=== PATIENT | female | born 1930 | race Caucasian/White ===

== ENCOUNTER 2017-01-29 07:36 | Emergency (ER) | payer MEDICARE, OTHER ==
[~2017-01-29] VITALS: Ht 154.9 cm; Wt 72.6 kg
[~2017-01-29 07:36] MED LIST: AMLO10TA2 PO; AMLO2.5T PO; ASCO500C PO; ASPI81TA44 PO; ATOR10TA60 PO; CEPH-263 PO; CIPR250T30 PO; CITA10TA4 PO; CITA10TA8 PO; CITA20TA5 PO; FURO-68 PO; FURO-69 PO; INSU100I17 SQ; INSU100I18 SQ; LEVO75TA5 PO; LOSA1TAB17 PO; METO2.5T PO; MV,C1TAB19 PO; OMEG300C PO; TOPI25TA7 PO; WARF4TAB68 PO
--- NOTE | 2017-01-29 07:47 | EKG ---
[facility] [address] [place] [address] Test Date: 2017-01-29 Test Time: 07:37:29 Pat Name: MOODY BULLARD Department: Room: Gender: F General Surgeon: : [id number] Requested By: CHARLES MENDES Order Number: [id number] Reading MD: Measurements Intervals [place] Rate: 70 P: 0 LA: 342 QRS: -101 QRSD: 142 T: 84 QT: 496 QTc: 539 Interpretive Statements SINUS RHYTHM PROLONGED LA INTERVAL ABNORMAL RIGHT SUPERIOR AXIS DEVIATION RIGHT BUNDLE BRANCH BLOCK QRS(T) CONTOUR ABNORMALITY CONSIDER INFERIOR INFARCT RI6.01 Unconfirmed report No previous ECG available for comparison
--- NOTE | 2017-01-29 07:58 | PHYS DOC ---
Past Medical History Past Medical History: A-Fib, CHF, Diabetes-Type II, High Cholesterol, Hypertension, Renal Failure, Stroke, TIA, UTI Past Surgical History: Cholecystectomy, Hysterectomy, Pacemaker, Tonsillectomy , Other Additional Past Surgical Histo: EAR SX Alcohol Use: None Drug Use: None Adult General Chief Complaint Chief Complaint: CHEST PAIN-CARDIAC NATURE HPI HPI Patient is a 87 year old female with history of CAD, CHF, chronic renal disease who presents with intermittent chest pain described as achiness since last night. Patient's chest pain is gravity is mild to moderate waxes and wanes and is improved with nitroglycerin given at healthcare facility prior to transfer. Pain radiates to left shoulder. It is associated with shortness of breath. Patient denies dizziness headache, change in vision, palpitations, abdominal pain, nausea vomiting, leg pain swelling acute extremity weakness or loss of sensation. No other acute symptoms or complaints. Review of Systems Review of Systems ROS as per HPI. All other ROS are negative. Current Medications Current Medications Current Medications Medications (Trade) Dose Ordered Sig/Patrice Start Time Stop Time Status Last Admin Dose Admin Fentanyl Citrate (Fentanyl 2ml Vial) 50 mcg 1X ONCE 01/29/17 09:15 01/29/17 09:16 DC 01/29/17 09:25 50 MCG Nitroglycerin (Nitrostat) 0.4 mg PRN Q5MIN PRN 01/29/17 08:00 Ondansetron HCl (Zofran) 4 mg 1X ONCE 01/29/17 08:00 01/29/17 08:01 DC 01/29/17 08:13 4 MG Allergies Allergies Allergies Coded Allergies Type Severity Reaction Last Updated Verified Penicillins Allergy Intermediate 03/20/14 Yes Sulfa (Sulfonamide Antibiotics) Allergy Intermediate 03/20/14 Yes Physical Exam Physical Exam Constitutional: Well developed, well nourished, no acute distress, non-toxic appearance. [] HENT: Normocephalic, atraumatic, bilateral external ears normal, oropharynx moist, no oral exudates, nose normal. [] Eyes: PERRLA, EOMI, conjunctiva normal, no discharge. [] Neck: Normal range of motion, no tenderness, supple, no stridor. [] Cardiovascular: Regular rate and rhythm [] Lungs & Thorax: Bilateral breath sounds clear to auscultation [] Abdomen: Bowel sounds normal, soft, no tenderness, no masses, no pulsatile masses. [] Skin: Warm, dry, no erythema, no rash. [] Back: No tenderness, no CVA tenderness. [] Extremities: No tenderness, negative Homans signs. [] Neurologic: Alert and oriented X 3, normal motor function, normal sensory function, no focal deficits noted. [] Psychologic: Affect normal, judgement normal, mood normal. [] Current Patient Data Vital Signs Vital Signs Date Time Temp Pulse Resp B/P (MAP) Pulse Ox O2 Delivery O2 Flow Rate FiO2 01/29/17 09:41 69 18 157/69 (98) 97 Nasal Cannula 2.0 01/29/17 07:46 97.6 97.6 Lab Values Laboratory Tests Test 01/29/17 08:05 01/29/17 08:30 White Blood Count 10.2 x10^3/uL (4.0-11.0) Red Blood Count 3.57 x10^6/uL (3.50-5.40) Hemoglobin 10.4 g/dL (12.0-15.5) L Hematocrit 31.7 % (36.0-47.0) L Mean Corpuscular Volume 89 fL (79-100) Mean Corpuscular Hemoglobin 29 pg (25-35) Mean Corpuscular Hemoglobin Concent 33 g/dL (31-37) Red Cell Distribution Width 14.6 % (11.5-14.5) H Platelet Count 170 x10^3/uL (140-400) Neutrophils (%) (Auto) 72 % (31-73) Lymphocytes (%) (Auto) 17 % (24-48) L Monocytes (%) (Auto) 8 % (0-9) Eosinophils (%) (Auto) 2 % (0-3) Basophils (%) (Auto) 1 % (0-3) Neutrophils # (Auto) 7.3 x10^3uL (1.8-7.7) Lymphocytes # (Auto) 1.7 x10^3/uL (1.0-4.8) Monocytes # (Auto) 0.8 x10^3/uL (0.0-1.1) Eosinophils # (Auto) 0.2 x10^3/uL (0.0-0.7) Basophils # (Auto) 0.1 x10^3/uL (0.0-0.2) Prothrombin Time 28.5 SEC (11.7-14.0) H Prothrombin Time INR 2.9 (0.8-1.1) H Sodium Level 138 mmol/L (136-145) Potassium Level 3.7 mmol/L (3.5-5.1) Chloride Level 102 mmol/L (98-107) Carbon Dioxide Level 29 mmol/L (21-32) Anion Gap 7 (6-14) Blood Urea Nitrogen 62 mg/dL (7-20) H Creatinine 2.0 mg/dL (0.6-1.0) H Estimated GFR (Cockcroft-Gault) 23.7 BUN/Creatinine Ratio 31 (6-20) H Glucose Level 102 mg/dL (70-99) H Calcium Level 7.8 mg/dL (8.5-10.1) L Total Bilirubin 0.4 mg/dL (0.2-1.0) Aspartate Amino Transferase (AST) 19 U/L (15-37) Alanine Aminotransferase (ALT) 7 U/L (14-59) L Alkaline Phosphatase 71 U/L (46-116) Creatine Kinase 29 U/L (26-192) Troponin I Quantitative 0.025 ng/mL (0.000-0.055) Total Protein 5.2 g/dL (6.4-8.2) L Albumin 2.7 g/dL (3.4-5.0) L Albumin/Globulin Ratio 1.1 (1.0-1.7) Laboratory Tests 01/29/17 08:05 Laboratory Tests 01/29/17 08:30 EKG EKG [EKG is paced rhythm, limited interpretation.] Radiology/Procedures Radiology/Procedures [Chest x-ray: No acute cardiopulmonary disease per radiology report Course & Med Decision Making Course & Med Decision Making Pertinent Labs and Imaging studies reviewed. (See chart for details) [Chest pain significant improved with fentanyl. Lab work and EKG and chest x- ray reviewed. Patient's symptoms concern for angina. Per patient and patient's family members request the patient will be transferred to [facility] where she receives cardiac care. Dr. Casarez accepts patient at 09:45.] Dragroderick Disclaimer Dragon Disclaimer This electronic medical record was generated, in whole or in part, using a voice recognition dictation system. Departure Departure Impression: Primary Impression: Chest pain Disposition: 02 TRANSFER [facility] Referrals: DAPHNE DEVI MD (PCP) CHARLES MENDES DO Jan 29, 2017 07:58
[2017-01-29] MEDS ORDERED: fentaNYL PF VIAL 100 MCG/2 ML VIAL IV ONE ×2 (08:00→09:15)
[2017-01-29] MEDS ORDERED: NITROGLYCERIN SUBLINGUAL 0.4 MG BOTTLE OF 25. SL PRN (08:00)
[2017-01-29] MEDS ORDERED: ONDANSETRON PF 4 MG/2 ML VIAL. IV ONE (08:00)
--- NOTE | 2017-01-29 08:20 | RAD ---
Indication shortness of air. A single view of the chest was obtained and is compared to an examination 03/25/2014. Postoperative changes are noted. Cardiac and defibrillating pacing device is noted. Prosthetic valve is noted. There is mild cardiomegaly. Gross congestive heart failure is not seen. No consolidated pneumonia is seen. IMPRESSION: No acute finding apparent in the chest
[2017-01-29 08:21] LABS: BASO # 0.1 x10^3/uL (0.0-0.2); BASO % 1 % (0-3); EOS % 2 % (0-3); HEMATOCRIT 31.7 % (36.0-47.0); HEMOGLOBIN 10.4 g/dL (12.0-15.5); LYMPH # 1.7 x10^3/uL (1.0-4.8); LYMPH % 17 % (24-48); MEAN CORPUSCULAR HEMOGLOBIN 29 pg (25-35); MEAN CORPUSCULAR HGB CONC 33 g/dL (31-37); MEAN CORPUSCULAR VOLUME 89 fL (79-100); MONO % 8 % (0-9); NEUT % 72 % (31-73); PLATELET COUNT 170 x10^3/uL (140-400); RED BLOOD COUNT 3.57 x10^6/uL (3.50-5.40); RED CELL DISTRIBUTION WIDTH 14.6 % (11.5-14.5); WHITE BLOOD COUNT 10.2 x10^3/uL (4.0-11.0)
[2017-01-29 08:53] LABS: CALCIUM 7.8 mg/dL (8.5-10.1); GFR 23.7; POTASSIUM 3.7 mmol/L (3.5-5.1)
[2017-01-29 08:59] LABS: ALBUMIN 2.7 g/dL (3.4-5.0); ALBUMIN/GLOBULIN RATIO 1.1 (1.0-1.7); TOTAL BILIRUBIN 0.4 mg/dL (0.2-1.0); TOTAL PROTEIN 5.2 g/dL (6.4-8.2)
[2017-01-29 09:41] VITALS: BP 157/69
[2017-01-29 10:11] LABS: INR 2.9 (0.8-1.1); PROTHROMBIN TIME PATIENT 28.5 SEC (11.7-14.0)
== END 2017-01-29 10:41 | disposition short-term general hospital (02) ==
LOC: ER 07:36
DX: R07.89 Other chest pain (principal); E11.22 Type 2 diabetes mellitus with diabetic chronic kidney disease; E78.00 Pure hypercholesterolemia, unspecified; I13.0 Hypertensive heart and chronic kidney disease with heart failure and stage 1 through stage 4 chronic kidney disease, or unspecified chronic kidney disease; I50.9 Heart failure, unspecified; N18.9 Chronic kidney disease, unspecified; I25.10 Atherosclerotic heart disease of native coronary artery without angina pectoris; I48.91 Unspecified atrial fibrillation; Z95.0 Presence of cardiac pacemaker; Z86.73 Personal history of transient ischemic attack (TIA), and cerebral infarction without residual deficits; Z87.440 Personal history of urinary (tract) infections; Z88.0 Allergy status to penicillin; Z88.2 Allergy status to sulfonamides
CPT/HCPCS: 36415; 71010; 80053; 82550; 84484; 85027; 85610; 93005; 96374; 96375; 96376; 99285; J2405; J3010